=== PATIENT | female | born 1980 | race Caucasian/White ===

== ENCOUNTER 2017-06-24 06:45 | Day surgery (SDC) | payer OTHER ==
[2017-06-24 07:12] VITALS: BMI 43.2
[2017-06-24] MEDS ORDERED: Lactated Ringer's 1,000 ML IV ONE (08:28)
--- NOTE | 2017-06-24 08:28 | CP.SDSHP ---
Same Day Surgery H & P - History Proposed Procedure: egd Pre-Op Diagnosis: preop bariatric surgery - Allergies Allergies: Allergies No Known Allergies Allergy (Verified 06/24/17 07:12) - Physical Exam General Appearance: nl Vital Signs: Vital Signs 06/24/17 07:00 Temperature 98.2 F Pulse Rate 90 Respiratory 20 Rate Blood Pressure 121/80 O2 Sat by Pulse 100 Oximetry Mental Status: Alert & Oriented x3 Neuro: WNL Heart: WNL Lungs: WNL GI: WNL - {Optional Preform as Required} Abdomen: WNL - Impression Impression: preop bariatric surgery. egd Pt. Evaluated Today:Candidate for Anesthesia & Procedure: Yes - Date & Time Date: 06/24/17 Time: 08:28 Short Stay Discharge - Short Stay Discharge Admitting Diagnosis/Reason for Visit: PREOPERATIVE GASTROINTESTINAL EXAMINATION Disposition: HOME/ ROUTINE
[2017-06-24] MEDS ORDERED: Propofol 10 mg/ml Inj (20 ML) ONE (08:29)
[2017-06-24] MEDS ORDERED: Lactated Ringer's 500 ML IV SCH (08:45)
[2017-06-24 08:57] VITALS: TEMP 98.7
[2017-06-24 14:35] VITALS: BP 117/65; PULSE 85; RESP 18; O2SAT 99
== END 2017-06-24 10:00 | disposition home or self-care (01) ==
LOC: C.ENDO 06:45
PROVIDERS: ATTEND Internal Medicine
DX: Z01.818 Encounter for other preprocedural examination (principal); B96.81 Helicobacter pylori [H. pylori] as the cause of diseases classified elsewhere; E66.01 Morbid (severe) obesity due to excess calories; Z68.41 Body mass index [BMI] 40.0-44.9, adult; K29.70 Gastritis, unspecified, without bleeding
CPT/HCPCS: 43239; 84703; 88305; J2704; J7120